=== PATIENT | female | born 1975 | race Two or more races ===

== ENCOUNTER → 2025-02-15 | Outpatient (CLI) | payer MEDICAID, SELFPAY ==
--- NOTE | 2025-02-15 | XR_ITS ---
Examination: Diagnostic digital mammography, bilateral Computer aided detection 3-D breast Tomosynthesis, bilateral Date and time of exam: February 15, 2025, 1535 hours INDICATIONS: Mammogram September 10, 1999 2410 mm focal asymmetry upper inner right breast 12 mm focal asymmetry lower outer left breast Technique: Nonmagnified MLO, CC views of the breasts to been obtained, reconstructed from 3-D Tomosynthesis images. R2 computer aided detection program utilized for evaluation of suspicious masses and/or abnormal calcifications. 3-D Tomosynthesis images obtained. Findings: The breasts are heterogeneously dense, which may obscure small masses Benign calcifications No suspicious masses noted Impression: BI-RADS Category 2: Benign findings Recommend yearly follow-up mammography Please see the left breast sonogram report February 15, 2025, 3 to 6-month follow-up left breast sonography needed.
--- NOTE | 2025-02-15 15:00 | XR_ITS ---
Examination: Breast ultrasound, unilateral, left complete Date and time of exam: February 15, 2025, 1506 hours INDICATIONS: Mammogram September 10, 1999 2410 mm focal asymmetry inner upper right breast 12 mm focal asymmetry lower left breast Technique: Real-time cummings scale ultrasonographic imaging performed left breast including all 4 quadrants as well as nipple retroareolar and axillary region. Findings: 2:00 cyst 7 x 8 mm 9:00 nodule lobular margins 4 x 7 mm Retroareolar dilated ducts IMPRESSION: BI-RADS Category 3: Probably benign findings 1 additional 6-month left breast sonogram follow-up is needed to document stability of 9:00 nodule described above
== END | disposition home or self-care (01) ==
LOC: CDIM 14:46
PROVIDERS: PCP Nurse Practitioner Family; Referring Provider Nurse Practitioner Family; Visit Provider Nurse Practitioner Family
DX: R92.323 Mammographic fibroglandular density, bilateral breasts (principal); R92.1 Mammographic calcification found on diagnostic imaging of breast; N63.25 Unspecified lump in the left breast, overlapping quadrants
CPT/HCPCS: 76641; 77062; 77066; G0279